=== PATIENT | female | born 1975 | race Two or more races ===

== ENCOUNTER 2019-02-04 13:07 | Emergency (ER) | payer OTHER ==
[~2019-02-04] VITALS: Ht 160 cm; Wt 80.6 kg
--- NOTE | 2019-02-04 13:30 | NUR ---
PT MOVED TO ROOM
[2019-02-04] MEDS ORDERED: AZITHROMYCIN 500 MG in SODIUM CHLORIDE 0.9% 250 ML IVPB ONE (14:00)
[2019-02-04] MEDS ORDERED: SODIUM CHLORIDE FLUSH 10ML SYR IVF ONE (14:00)
[2019-02-04] MEDS ORDERED: CEFTRIAXONE PMX 1GM/50ML 50 ML IVPB ONE (14:00)
--- NOTE | 2019-02-04 14:15 | NUR ---
pt presents to ed, sent from urgent care. pt states she has had cough and headache for last several weeks, and was given course of po abx through pcp which she has finished. pt was dx with pna at urgent care and sent to emergency dept. pt is a&o, resps even and unlabored, able to speak in full sentences. neuro intact. bp and spo2 monitors in place, pt to receive abx, awaiting lab results and dispo at this time.
--- NOTE | 2019-02-04 14:29 | NUR ---
blood cx drawn x 2
--- NOTE | 2019-02-04 14:38 | NUR ---
Note undone in EDM - 02/04/19 at 1439 by EMERY RT TX IN PROGRESS. PT IS A&O, RESPS EVEN AND UNLABORED, ANXIOUS. NSR ON [facility] WITH NO ECTOPY. 500ML NS INFUSED, CONTINUES TO INFUSE RAPIDLY. MD COTTON NOTIFIED OF REPEAT BP.
--- NOTE | 2019-02-04 14:39 | NUR ---
NOTE UNDONE ; CHARTED ON WRONG PATIENT.
[2019-02-04] MEDS ORDERED: CEFTRIAXONE PMX 1GM/50ML 50 ML ONE (14:41)
[2019-02-04 14:46] LABS: BASOPHILS # (AUTO) 0.02 x10^3/uL (0-0.1); BASOPHILS % (AUTO) 0 % (0-1); EOSINOPHILS # (AUTO) 0.01 x10^3/uL (0-0.4); EOSINOPHILS % (AUTO) 0 % (1-7); LYMPHOCYTES # (AUTO) 1.08 x10^3/uL (1-3.4); LYMPHOCYTES % (AUTO) 8 % (22-44); MD NO; MEAN CORPUSCULAR HEMOGLOBIN 29.3 pg (27.0-34.8); MEAN CORPUSCULAR HGB CONC 33.9 g/dL (32.4-35.8); MEAN CORPUSCULAR VOLUME 86.6 fL (80-100); MEAN PLATELET VOLUME 7.9 fL (7.4-10.4); MONOCYTES # (AUTO) 0.81 x10^3/uL (0.2-0.8); MONOCYTES % (AUTO) 6 % (2-9); NEUTROPHILS # (AUTO) 11.46 x10^3/uL (1.8-6.8); NEUTROPHILS % (AUTO) 86 % (42-75); PLATELET COUNT 330 x10^3/uL (130-400); RED BLOOD COUNT 4.55 x10^6/uL (3.82-5.3); RED CELL DISTRIBUTION WIDTH 13.2 % (9.6-15.2)
--- NOTE | 2019-02-04 14:56 | NUR ---
report given to ALIREZA Don. pt a&o, resps even and unlabored, nadn at this time. awaiting labs and dispo. pt infusing rocephin at this time.
[2019-02-04 15:00] LABS: ALBUMIN 3.3 g/dL (3.4-5.0); ANION GAP 9 mmol/L (5-15); CALCIUM 8.8 mg/dL (8.5-10.1); CHLORIDE 110 mmol/L (98-107); CREATININE 0.91 mg/dL (0.55-1.02)
--- NOTE | 2019-02-04 15:11 | NUR ---
PT C/O HEADACHE, HAS BEEN PRESENT INTERMITTENTLY FOR WEEKS. NEURO INTACT. MD PEREZ NOTIFIED, MED REQUESTED FOR PAIN CONTROL.
[2019-02-04] MEDS ORDERED: IBUPROFEN 600 MG TABLET ONE (15:30)
[2019-02-04] MEDS ORDERED: IBUPROFEN 600 MG TABLET PO ONE (15:30)
[2019-02-04 16:52] VITALS: BP 112/62
--- NOTE | 2019-02-04 16:54 | NUR ---
Patient discharged home discharge instrutions provided all questions and concerns addressed, IV dc'd cath intact. ambulatory with steady gait, RR even and unlabored. VSS all patient belongings with patient.
== END 2019-02-04 17:04 | disposition home or self-care (01) ==
LOC: ED 16:55
DX: J15.9 Unspecified bacterial pneumonia (principal)
CPT/HCPCS: 36415; 80048; 82040; 83605; 85025; 87040; 93005; 96365; 99284; J0456; J0696; J7050